=== PATIENT | female | born 1960 | race Caucasian/White ===

== ENCOUNTER → 2019-08-17 | Outpatient (REF) ==
--- NOTE | 2019-08-17 16:44 | REP ---
Cervical spine series: Four views. History: Degenerative disc disease. No comparison imaging. Findings: Lateral and swimmers lateral views demonstrate degenerative disc narrowing with a large anterior osteophytes formed at the C5-6 and to some degree C6-7. There is also fairly prominent discogenic spurring anteriorly at C4-5. Cervical vertebral body heights are preserved. Alignment is normal. There is moderate osteoarthritic facet hypertrophy bilaterally at C2-3, C3-4 and to a lesser extent C4-5. Open-mouth odontoid view is unremarkable. Impression: Degenerative disc and osteoarthritic facet changes as above. No acute bony abnormality. Electronically Signed by Jose Alejandro Diaz MD 08/17/2019 05:10 P
--- NOTE | 2019-08-17 16:46 | REP ---
Left hand series: Four views. History: Degenerative disease. Findings: Four views of the left hand demonstrate overall normal mineralization. There is fragmented osteoarthritic spurring at the DIP joint of the index finger. Mild osteoarthritic spurring is seen at the DIP joint of the long finger as well. There is minimal first metacarpal carpal spurring and first metacarpal phalangeal joint spurring. Joint space narrowing is seen at the DIP joint of the small finger. Impression: Mild osteoarthritic changes. Electronically Signed by Jose Alejandro Diaz MD 08/17/2019 05:10 P
== END ==
LOC: M SMT 13:27
PROVIDERS: ATTEND Internal Medicine
DX: Z02.71 Encounter for disability determination (principal)